=== PATIENT | female | born 1955 | race Caucasian/White ===

== ENCOUNTER 2019-09-30 21:30 | Emergency (ER) | payer SELFPAY ==
[~2019-09-30] VITALS: Ht 170.2 cm; Wt 72.9 kg
[~2019-09-30 21:30] MED LIST: ALPR0.25 PO; ASPI-650 PO; ATOR10TA9 PO; ATOR40TA78 PO; DILT120C11 PO; IBUP-1223 PO; LEVO25TA4 PO
[2019-09-30 21:35] VITALS: BP 140/73
[2019-09-30 22:45] LABS: BASOPHILS # (AUTO) 0.03 x10^3/uL (0-0.1); BASOPHILS % (AUTO) 1 % (0-1); EOSINOPHILS # (AUTO) 0.07 x10^3/uL (0-0.4); EOSINOPHILS % (AUTO) 1 % (1-7); LYMPHOCYTES # (AUTO) 1.75 x10^3/uL (1-3.4); LYMPHOCYTES % (AUTO) 31 % (22-44); MD NO; MEAN CORPUSCULAR HEMOGLOBIN 31.2 pg (27.0-34.8); MEAN CORPUSCULAR HGB CONC 32.9 g/dL (32.4-35.8); MEAN PLATELET VOLUME 9.1 fL (7.4-10.4); MONOCYTES # (AUTO) 0.49 x10^3/uL (0.2-0.8); MONOCYTES % (AUTO) 9 % (2-9); NEUTROPHILS # (AUTO) 3.24 x10^3/uL (1.8-6.8); NEUTROPHILS % (AUTO) 58 % (42-75); PLATELET COUNT 233 x10^3/uL (130-400); RED BLOOD COUNT 4.44 x10^6/uL (3.82-5.3); RED CELL DISTRIBUTION WIDTH 14.1 % (9.6-15.2)
[2019-09-30 22:54] LABS: ALBUMIN 3.9 g/dL (3.4-5.0); ANION GAP 7 mmol/L (5-15); CALCIUM 9.3 mg/dL (8.5-10.1); CHLORIDE 110 mmol/L (98-107)
[2019-09-30 22:55] LABS: SALICYLATE LEVEL < 1.7 mg/dL (2.8-20.0)
[2019-09-30 22:56] LABS: ALANINE AMINOTRANSFERASE 19 U/L (12-78); ALKALINE PHOSPHATASE 113 U/L (45-117); BILIRUBIN,TOTAL 0.5 mg/dL (0.2-1.0); TOTAL PROTEIN 6.9 g/dL (6.4-8.2)
--- NOTE | 2019-09-30 23:02 | NUR ---
PT DENIES SI TO THIS RN ALSO. WHEN ASKED WHY SHE IS HERE, PT STATES, "FOR ANXIETY I GUESS. I JUST WANT TO CURL UP WITH MY DOGS." DENIES ANY PSYCH HX.
--- NOTE | 2019-09-30 23:04 | NUR ---
PT STATES SHE'S NOT CURRENTLY TAKING ANY OF THE MEDS ON HER PREVIOUS MED LIST. STATES SHE TAKES 1 MEDICATION BUT SHE CAN'T REMEMBER THE NAME.
--- NOTE | 2019-09-30 23:54 | NUR ---
PT'S SON SHOSHANA CALLED, IS TALKING WITH ERP ON THE PHONE NOW.
[2019-09-30 23:58] LABS: MICROSCOPIC AUTO
--- NOTE | 2019-10-01 | NUR ---
REPORT FROM JENNIFER MOTT
[2019-10-01 00:09] LABS: AMPHETAMINE SCREEN, URINE Negative (Negative); BARBITURATE SCREEN, URINE Negative (Negative); BENZODIAZEPINE SCREEN, URINE Negative (Negative); CANNABINOID SCREEN, URINE Negative (Negative); COCAINE SCREEN, URINE Negative (Negative); METHADONE SCREEN, URINE Negative (Negative); OPIATE SCREEN, URINE Negative (Negative)
== END 2019-10-01 01:14 | disposition home or self-care (01) ==
LOC: ED 23:13
DX: F03.91 Unspecified dementia, unspecified severity, with behavioral disturbance (principal); I48.91 Unspecified atrial fibrillation
CPT/HCPCS: 36415; 80053; 80307; 81001; 85025; 87086; 99283